=== PATIENT | male | born 1965 | race African-American/Black ===

== ENCOUNTER 2017-08-25 21:35 | Inpatient (IN) | payer MEDICAID, OTHER ==
[~2017-08-25] VITALS: Ht 66 cm; Wt 75.3 kg
[~2017-08-25 21:35] MED LIST: AMLO10TA80 PO; ASPI-1159 PO; COR12 PO; FURO20TA4 PO; HYDR100T26 PO; LOSA25TA12 PO
[2017-08-25] MEDS ORDERED: FUROSEMIDE 40MG/4ML VIAL IV STA (21:41)
[2017-08-25 22:22] LABS: BASOPHILS % 0.7 % (0.0-2.0); EOSINOPHILS % 4.3 % (0.0-5.0); HEMATOCRIT. 33.2 % (42.0-52.0); LYMPHOCYTES % 10.9 % (20.0-50.0); MEAN CORPUSCULAR HEMOGLOBIN 26.8 pg (28.0-32.0); MEAN CORPUSCULAR VOLUME 80.7 fL (80.0-94.0); MEAN PLATELET VOLUME 9.5 fl (7.4-10.4); MONOCYTES % 6.2 % (2.0-8.0); NEUTROPHILS % 77.9 % (40.0-76.0); PLATELET 119 x1000/uL (130-400); RED BLOOD CELL COUNT 4.11 mill/uL (4.7-6.1); RED CELL DISTRIBUTION WIDTH 13.9 % (11.6-14.6)
[2017-08-25 22:28] LABS: CHLORIDE 100 mEq/L (98-107)
[2017-08-25 22:29] LABS: CARBON DIOXIDE 28 mEq/L (21-32)
[2017-08-25 22:31] LABS: D-DIMER 1.28 mg/L FEU (<0.50); INR 1.2; PARTIAL THROMBOPLASTIN TIME 26.1 sec (23.4-31.0); PROTHROMBIN TIME 12.1 sec (9.4-11.6)
[2017-08-25 22:38] LABS: CREATINE KINASE 295 IU/L (39-308); TROPONIN I 0.23 ng/mL (0.00-0.04)
[2017-08-25] MEDS ORDERED: ASPIRIN 325MG EC TABLET PO ONE (23:30)
[2017-08-25 23:33] LABS: BG BASE EXCESS -1.9 mmol/L (-2.0-2.0); BG BILEVEL POS AIRWAY PRESSURE 15/5; BG CARBOXYHEMOGLOBIN 0.3 % (0.5-1.5); BG DEOXYHEMOGLOBIN 1.4 % (0.0-5.0); BG FRACTION INSPIRED OXYGEN 60; BG HCO3 ACT 23.8 mmol/L (22.0-26.0); BG METHEMOGLOBIN 0.1 % (0.0-1.5); BG OXYGEN SATURATION 98.6 % (92.0-98.5); BG OXYHEMOGLOBIN 98.2 % (94.0-97.0); BG PCO2 44.6 mmHg (35.0-45.0); BG PH 7.346 (7.350-7.450); BG PO2 169.6 mmHg (75.0-100.0); BG SAMPLE SITE RIGHT RADIAL; BG TOTAL HEMOGLOBIN 12.2 g/dL (12.0-18.0); BG VENT MODE MASK - BIPAP; BG VENT RATE 12 set
[2017-08-25] MEDS ORDERED: POTASSIUM CHLORIDE 20MEQ TABLET SR PO ONE (23:45)
[2017-08-26 03:38] LABS: *AMPHETAMINES SCREEN URINE NEGATIVE (NEGATIVE); *BARBITURATES SCREEN URINE NEGATIVE (NEGATIVE); *BENZODIAZEPINES SCREEN URINE NEGATIVE (NEGATIVE); *COCAINE SCREEN URINE NEGATIVE (NEGATIVE); CANNABINOID URINE SCREEN NEGATIVE (NEGATIVE); METHADONE URINE SCREEN NEGATIVE (NEGATIVE); PHENCYCLIDINE URINE SCREEN NEGATIVE (NEGATIVE)
[2017-08-26 03:53] LABS: OPIATES URINE SCREEN NEGATIVE (NEGATIVE)
[2017-08-26] MEDS ORDERED: MAGNESIUM/ALUMINUM HYDROXIDE/SIMETHICONE 30ML UDC PO PRN (08:45)
[2017-08-26] MEDS ORDERED: ACETAMINOPHEN 325MG TABLET PO PRN (08:45)
[2017-08-26] MEDS ORDERED: ONDANSETRON HCL 4MG/2ML VIAL IV PRN (08:45)
[2017-08-26] MEDS ORDERED: CLONIDINE 0.1MG TABLET PO PRN (08:45)
[2017-08-26] MEDS ORDERED: IPRATROPIUM/ALBUTEROL 0.5-3(2.5)MG/3ML NEB INH PRN (08:45)
[2017-08-26] MEDS ORDERED: ENOXAPARIN 40MG/0.4ML SYR SUBCUT SCH (08:45)
[2017-08-26] MEDS ORDERED: HYDROCODONE/ACETAMINOPHEN 5/325MG TABLET PO PRN (08:45)
[2017-08-26] MEDS ORDERED: MAGNESIUM 2 G PREMIX 50 ML IV NR (09:11)
[2017-08-26 12:01] LABS: BG BASE EXCESS 0.7 mmol/L (-2.0-2.0); BG CARBOXYHEMOGLOBIN 0.3 % (0.5-1.5); BG DEOXYHEMOGLOBIN 6.4 % (0.0-5.0); BG FRACTION INSPIRED OXYGEN 28; BG HCO3 ACT 24.6 mmol/L (22.0-26.0); BG METHEMOGLOBIN 0.2 % (0.0-1.5); BG OXYGEN SATURATION 93.6 % (92.0-98.5); BG OXYHEMOGLOBIN 93.1 % (94.0-97.0); BG PCO2 37.1 mmHg (35.0-45.0); BG PO2 71.5 mmHg (75.0-100.0); BG SAMPLE SITE RIGHT RADIAL; BG VENT MODE NASAL CANNULA
[2017-08-26] MEDS ORDERED: LOSARTAN POTASSIUM 50 MG TABLET PO SCH (13:45)
[2017-08-26] MEDS ORDERED: ISOSORB DINIT/HYDRALAZINE HCL 20/37.5MG TABLET PO SCH (14:00)
[2017-08-26] MEDS ORDERED: POTASSIUM CHLORIDE 20MEQ TABLET SR PO NR (14:15)
[2017-08-26] MEDS ORDERED: CARVEDILOL 12.5MG TABLET PO SCH (17:00)
[2017-08-26] MEDS ORDERED: LOSARTAN POTASSIUM 50 MG TABLET PO NR (17:45)
[2017-08-26] MEDS ORDERED: ISOSORB DINIT/HYDRALAZINE HCL 20/37.5MG TABLET PO NR (17:45)
[2017-08-26] MEDS ORDERED: CARVEDILOL 12.5MG TABLET PO NR (17:45)
[2017-08-26] MEDS: FUROSEMIDE 40MG/4ML VIAL IV SCH (20:10)
[2017-08-26 20:44] LABS: CREATINE KINASE MB FRACTION 5.9 ng/mL (0.5-3.6)
[2017-08-26 20:49] LABS: TROPONIN I 1.4 ng/mL (0.00-0.04)
[2017-08-27] VITALS (9 sets, daily range): BP systolic 122–154; BP diastolic 71–108
[2017-08-27] MEDS: AMLODIPINE 5MG TABLET PO SCH ×3 (00:21→20:40)
[2017-08-27] MEDS: CARVEDILOL 12.5MG TABLET PO SCH ×3 (00:21→20:41)
[2017-08-27] MEDS: ISOSORB DINIT/HYDRALAZINE HCL 20/37.5MG TABLET PO SCH ×3 (06:12→22:09)
[2017-08-27] MEDS: FUROSEMIDE 40MG/4ML VIAL IV SCH ×2 (06:12→16:50)
[2017-08-27 06:36] LABS: BASOPHILS % 0.9 % (0.0-2.0); EOSINOPHILS % 5.5 % (0.0-5.0); HEMATOCRIT. 30.2 % (42.0-52.0); HEMOGLOBIN. 10.2 g/dL (14.0-18.0); MEAN CORPUSCULAR VOLUME 80.3 fL (80.0-94.0); MEAN PLATELET VOLUME 9.8 fl (7.4-10.4); NEUTROPHILS % 69.6 % (40.0-76.0); PLATELET 107 x1000/uL (130-400); RED BLOOD CELL COUNT 3.76 mill/uL (4.7-6.1); RED CELL DISTRIBUTION WIDTH 13.7 % (11.6-14.6)
[2017-08-27 07:24] LABS: CREATINE KINASE MB FRACTION 4.5 ng/mL (0.5-3.6)
[2017-08-27 07:50] LABS: TROPONIN I 0.76 ng/mL (0.00-0.04)
[2017-08-27] MEDS: LOSARTAN POTASSIUM 50 MG TABLET PO SCH (08:49)
[2017-08-27] MEDS: POTASSIUM CHLORIDE 20MEQ TABLET SR PO SCH (08:53)
[2017-08-27] MEDS: ENOXAPARIN 30MG/0.3ML SYR SUBCUT SCH (08:53)
[2017-08-27 09:26] LABS: CLARITY URINE CLEAR (CLEAR); COLOR URINE YELLOW (YELLOW); GLUCOSE URINE NEGATIVE (NEGATIVE); KETONES URINE NEGATIVE (NEGATIVE); LEUKOCYTE ESTERASE URINE TRACE (NEGATIVE); NITRITE URINE NEGATIVE (NEGATIVE); OCCULT BLOOD URINE TRACE (NEGATIVE); PROTEIN URINE NEGATIVE (NEGATIVE); UROBILINOGEN URINE 0.2 E.U./dL (0.2-1.0)
[2017-08-27] MEDS ORDERED: POTASSIUM CHLORIDE 20MEQ TABLET SR PO NR (21:00)
[2017-08-28] VITALS (13 sets, daily range): BP systolic 124–163; BP diastolic 67–92
[2017-08-28 06:20] LABS: BASOPHILS % 0.6 % (0.0-2.0); EOSINOPHILS % 8.7 % (0.0-5.0); HEMATOCRIT. 32.4 % (42.0-52.0); HEMOGLOBIN. 11.5 g/dL (14.0-18.0); LYMPHOCYTES % 19.6 % (20.0-50.0); MEAN CORPUSCULAR HEMOGLOBIN 28.5 pg (28.0-32.0); MEAN CORPUSCULAR VOLUME 80.5 fL (80.0-94.0); MONOCYTES % 14.4 % (2.0-8.0); NEUTROPHILS % 56.7 % (40.0-76.0); PLATELET 121 x1000/uL (130-400); RED BLOOD CELL COUNT 4.02 mill/uL (4.7-6.1); RED CELL DISTRIBUTION WIDTH 13.8 % (11.6-14.6)
[2017-08-28 06:25] LABS: PHOSPHORUS 2.3 mg/dL (2.5-4.9)
[2017-08-28] MEDS: ISOSORB DINIT/HYDRALAZINE HCL 20/37.5MG TABLET PO SCH ×3 (06:41→21:09)
[2017-08-28] MEDS: FUROSEMIDE 40MG/4ML VIAL IV SCH ×2 (06:41→16:29)
[2017-08-28] MEDS: POTASSIUM CHLORIDE 20MEQ TABLET SR PO SCH (08:55)
[2017-08-28] MEDS: LOSARTAN POTASSIUM 50 MG TABLET PO SCH (08:56)
[2017-08-28] MEDS: AMLODIPINE 5MG TABLET PO SCH ×2 (08:56→21:10)
[2017-08-28] MEDS: CARVEDILOL 12.5MG TABLET PO SCH ×2 (08:56→21:10)
[2017-08-28] MEDS: ENOXAPARIN 30MG/0.3ML SYR SUBCUT SCH (08:57)
[2017-08-28] MEDS ORDERED: SODIUM PHOS,M-BASIC-D-BASIC 15 MM in DEXT 5% WATER 245 ML IV ONE (10:00)
[2017-08-29] VITALS (13 sets, daily range): BP systolic 111–151; BP diastolic 57–94
[2017-08-29] MEDS ORDERED: REGADENOSON 0.4 MG/5 ML IV ONE (06:15)
[2017-08-29] MEDS: ISOSORB DINIT/HYDRALAZINE HCL 20/37.5MG TABLET PO SCH ×3 (06:28→21:31)
[2017-08-29] MEDS: FUROSEMIDE 40MG/4ML VIAL IV SCH (06:28)
[2017-08-29 06:57] LABS: HEMATOCRIT. 34.4 % (42.0-52.0); HEMOGLOBIN. 11.8 g/dL (14.0-18.0); MEAN CORPUSCULAR HEMOGLOBIN 27.7 pg (28.0-32.0); MEAN CORPUSCULAR VOLUME 80.7 fL (80.0-94.0); MEAN PLATELET VOLUME 9.7 fl (7.4-10.4); PLATELET 131 x1000/uL (130-400); RED BLOOD CELL COUNT 4.26 mill/uL (4.7-6.1); RED CELL DISTRIBUTION WIDTH 13.7 % (11.6-14.6)
[2017-08-29 07:57] LABS: PHOSPHORUS 3.3 mg/dL (2.5-4.9)
[2017-08-29] MEDS: ENOXAPARIN 30MG/0.3ML SYR SUBCUT SCH (08:17)
[2017-08-29] MEDS: POTASSIUM CHLORIDE 20MEQ TABLET SR PO SCH (08:17)
[2017-08-29] MEDS: AMLODIPINE 5MG TABLET PO SCH ×2 (08:18→21:31)
[2017-08-29] MEDS: CARVEDILOL 12.5MG TABLET PO SCH ×2 (08:18→21:31)
[2017-08-29] MEDS: LOSARTAN POTASSIUM 50 MG TABLET PO SCH (08:18)
[2017-08-29] MEDS ORDERED: MAGNESIUM 2 G PREMIX 50 ML IV SCH (10:00)
[2017-08-29 10:44] LABS: PLATELET ESTIMATE NORMAL
[2017-08-30] VITALS (12 sets, daily range): BP systolic 101–149; BP diastolic 57–83
[2017-08-30 06:54] LABS: HEMATOCRIT. 32.8 % (42.0-52.0); HEMOGLOBIN. 11.2 g/dL (14.0-18.0); MEAN CORPUSCULAR HEMOGLOBIN 27.3 pg (28.0-32.0); MEAN CORPUSCULAR VOLUME 80.5 fL (80.0-94.0); PLATELET 155 x1000/uL (130-400); RED BLOOD CELL COUNT 4.08 mill/uL (4.7-6.1); RED CELL DISTRIBUTION WIDTH 13.9 % (11.6-14.6)
[2017-08-30] MEDS: ISOSORB DINIT/HYDRALAZINE HCL 20/37.5MG TABLET PO SCH ×2 (07:03→15:08)
[2017-08-30 07:44] LABS: PHOSPHORUS 3.8 mg/dL (2.5-4.9)
[2017-08-30] MEDS ORDERED: REGADENOSON 0.4 MG/5 ML IV ONE (07:52)
[2017-08-30] MEDS ORDERED: FUROSEMIDE 40MG/4ML VIAL IV SCH (09:00)
[2017-08-30 09:31] LABS: PLATELET ESTIMATE NORMAL
[2017-08-30] MEDS: CARVEDILOL 12.5MG TABLET PO SCH (10:18)
[2017-08-30] MEDS: LOSARTAN POTASSIUM 50 MG TABLET PO SCH (10:19)
[2017-08-30] MEDS: AMLODIPINE 5MG TABLET PO SCH (10:19)
[2017-08-30] MEDS: POTASSIUM CHLORIDE 20MEQ TABLET SR PO SCH ×2 (10:19→16:26)
[2017-08-30] MEDS: ENOXAPARIN 30MG/0.3ML SYR SUBCUT SCH (10:20)
[2017-08-30] MEDS ORDERED: LOSA50TA3 PO (11:55)
[2017-08-30] MEDS ORDERED: AMLO5TAB88 PO (11:55)
[2017-08-30] MEDS ORDERED: ISOS1TAB PO (11:55)
[2017-08-30] MEDS ORDERED: COR12 PO (11:55)
[2017-08-30] MEDS ORDERED: FURO-151 PO (11:55)
[2017-08-30] MEDS ORDERED: KDUR20 PO (11:55)
== END 2017-08-30 16:55 | disposition home or self-care (01) | DRG 194 ==
LOC: ER 21:52 → EDBEDREQTM 23:41 → EDBEDREQ 23:41 → ENRESERV 08-26 20:12 → 3WST 08-26 23:39
PROVIDERS: ADMIT Internal Medicine; ATTEND Internal Medicine
PROC: 5A09357 Assistance with Respiratory Ventilation, Less than 24 Consecutive Hours, Continuous Positive Airway Pressure (ICD-10-PCS; principal; 2017-08-26)
DX: I13.0 Hypertensive heart and chronic kidney disease with heart failure and stage 1 through stage 4 chronic kidney disease, or unspecified chronic kidney disease (principal); N17.0 Acute kidney failure with tubular necrosis; J96.01 Acute respiratory failure with hypoxia; N18.9 Chronic kidney disease, unspecified; I50.43 Acute on chronic combined systolic (congestive) and diastolic (congestive) heart failure; T50.1X5A Adverse effect of loop [high-ceiling] diuretics, initial encounter; N13.30 Unspecified hydronephrosis; E87.6 Hypokalemia; I42.0 Dilated cardiomyopathy; I25.10 Atherosclerotic heart disease of native coronary artery without angina pectoris; Z59.0 Homelessness; Z79.82 Long term (current) use of aspirin; Z79.899 Other long term (current) drug therapy
CPT/HCPCS: 36415; 36600; 71010; 76770; 78452; 80048; 80053; 80061; 80305; 81001; 82375; 82550; 82553; 82805; 83036; 83605; 83690; 83735; 83880; 84100; 84443; 84484; 85025; 85379; 85610; 85730; 87040; 93005; 93017; 93306; 93970; 94640; 94660; 96365; 96375; 96376; 99291; A9500; G0482; J1650; J1940; J2785; J3475; J3490; J7050; J7060